=== PATIENT | male | born 1965 | race American Indian/Alaskan Native ===

== ENCOUNTER 2017-01-31 13:08 | Emergency (ER) | payer MEDICAID, OTHER ==
[2017-01-31 14:55] VITALS: BP 146/103
[2017-01-31] MEDS ORDERED: NORCO 5/325 PO ONE (18:03)
[2017-01-31] MEDS ORDERED: FLEXERIL PO ONE (18:04)
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
== END 2017-01-31 18:35 | disposition home or self-care (01) ==
LOC: ED 13:08
DX: S39.012A Strain of muscle, fascia and tendon of lower back, initial encounter (principal); M25.511 Pain in right shoulder; I10 Essential (primary) hypertension; M79.671 Pain in right foot; F12.10 Cannabis abuse, uncomplicated; V49.59XA Passenger injured in collision with other motor vehicles in traffic accident, initial encounter; Y92.488 Other paved roadways as the place of occurrence of the external cause; Y93.89 Activity, other specified; Y99.8 Other external cause status